=== PATIENT | male | born 1975 | race African-American/Black ===

== ENCOUNTER 2016-08-12 11:01 | Emergency (ER) | payer OTHER ==
[~2016-08-12] VITALS: Ht 175.3 cm; Wt 73.9 kg
[2016-08-12 11:23] VITALS: BP 136/99
== END 2016-08-12 14:45 | disposition left against medical advice (07) ==
LOC: ER 11:06
DX: M79.604 Pain in right leg (principal); Z53.21 Procedure and treatment not carried out due to patient leaving prior to being seen by health care provider